=== PATIENT | male | born 1985 | race Two or more races ===

== ENCOUNTER 2017-11-16 10:17 | Emergency (ER) | payer SELFPAY ==
[~2017-11-16] VITALS: Ht 188 cm; Wt 79.4 kg
[2017-11-16 10:44] LABS: BASO % 0 % (0-3); EOS % 0 % (0-3); HEMATOCRIT 41.2 % (39.0-53.0); HEMOGLOBIN 14.6 g/dL (13.0-17.5); LYMPH # 0.2 x10^3/uL (1.0-4.8); LYMPH % 3 % (24-48); MEAN CORPUSCULAR HEMOGLOBIN 34 pg (25-35); MEAN CORPUSCULAR HGB CONC 36 g/dL (31-37); MEAN CORPUSCULAR VOLUME 95 fL (79-100); MONO # 1.1 x10^3/uL (0.0-1.1); MONO % 15 % (0-9); NEUT % 82 % (31-73); PLATELET COUNT 61 x10^3/uL (140-400); RED BLOOD COUNT 4.36 x10^6/uL (4.30-5.70); RED CELL DISTRIBUTION WIDTH 14.8 % (11.5-14.5); WHITE BLOOD COUNT 7.3 x10^3/uL (4.0-11.0)
[2017-11-16] MEDS ORDERED: IV NORMAL SALINE 1000ML BAG 1,000 ML IV ONE ×3 (10:45→11:45)
[2017-11-16] MEDS ORDERED: DIPHTH,PERTUSS(ACELL),TET TOX 0.5 ML DISP.SYRIN. VAX IM ONE (10:45)
[2017-11-16 10:53] LABS: CALCIUM 9.7 mg/dL (8.5-10.1); CREATININE 1.4 mg/dL (0.7-1.3); GFR 59.5; POTASSIUM 3.4 mmol/L (3.5-5.1)
[2017-11-16 10:57] LABS: BILIRUBIN,URINE SMALL (NEG); CLARITY,URINE CLEAR; NITRITE,URINE POSITIVE (NEG); PH,URINE 6.5; PROTEIN,URINE >=300 mg/dL (NEG-TRACE)
[2017-11-16 10:59] LABS: ALBUMIN 4.7 g/dL (3.4-5.0); ALBUMIN/GLOBULIN RATIO 1.2 (1.0-1.7); TOTAL BILIRUBIN 1.9 mg/dL (0.2-1.0); TOTAL PROTEIN 8.5 g/dL (6.4-8.2)
[2017-11-16 11:09] LABS: BARBITURATES NEG (NEG); BENZODIAZEPINES NEG (NEG); CANNABINOIDS POS (NEG); COCAINE NEG (NEG); METHADONE NEG (NEG); OPIATES NEG (NEG); PHENCYCLIDINE NEG (NEG)
[2017-11-16 11:10] LABS: AMPHETAMINE/METHAMPHETAMINE POS (NEG)
--- NOTE | 2017-11-16 11:16 | RAD ---
EXAM: Head CT without contrast. HISTORY: Seizure. TECHNIQUE: Computed tomographic images of the head were obtained without contrast. *One or more of the following individualized dose reduction techniques were utilized for this examination: 1. Automated exposure control. 2. Adjustment of the mA and/or kV according to patient size. 3. Use of iterative reconstruction technique. COMPARISON: None. FINDINGS: There is no acute or subacute extra-axial or intraparenchymal hemorrhage. There is no mass effect or midline shift. There is no hydrocephalus. The terrazas-white matter differentiation pattern is intact. There is evidence of reconstruction of a left orbital fracture. The mastoid air cells are clear. The visualized paranasal sinuses are clear. No suspicious calvarial lesion is seen. IMPRESSION: No acute intracranial findings. Electronically signed by: Kathie Au MD (11/16/2017 11:13 AM) [facility]
[2017-11-16 11:20] LABS: BACTERIA,URINE FEW /HPF (0-FEW); HYALINE CASTS, URINE OCCASIONAL /HPF; SQUAMOUS EPITHELIAL CELL,UR OCC /LPF; WBC,URINE OCC /HPF (0-4)
[2017-11-16 11:21] LABS: COLOR,URINE AMBER
[2017-11-16 11:29] LABS: ACETAMIN < 2 mcg/ml (10-30); SALIC < 2.8 mg/dL (2.8-20.0)
[2017-11-16 12:17] LABS: % BANDS 11 % (0-9); % LYMPHS 3 % (24-48); % MONOS 11 % (0-10); % SEGS 75 % (35-66)
[2017-11-16 12:19] LABS: PLT ESTIMATE DECREASED (ADEQUATE)
[2017-11-16 13:20] VITALS: BP 157/78
--- NOTE | 2017-11-16 14:05 | PHYS DOC ---
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 Apparently this was a witnessed seizure he was sitting on the stairs and then sort of passed out and apparently had some tonic-clonic activity that was out for approximately 10 minutes he had his head on the side of the stairs. His girlfriend did witness this and then ultimately actually she went to the hospital for a anxiety attack related to this problems she did tell the medics that they were drinking alcohol heavily last night. Patient tells me that he has been drinking alcohol but he says was a couple days back and he is trying to cut down he says he does not drink every day. He says that he was "eating Adderall" when I asked him about his drug screen. He says he was not actually using methamphetamine. He currently feels much better he just wants something to eat and drink he denies chest pain shortness of breath or abdominal pain he has mild headache at the site of the head injury he says Review of Systems Review of Systems Constitutional: Denies fever or chills [] Eyes: Denies change in visual acuity, redness, or eye pain [] GI: Denies abdominal pain, nausea, vomiting, bloody stools or diarrhea [] Integument: Denies rash or skin lesions [] Neurologic: Denies headache, focal weakness or sensory changes [] All other systems were reviewed and found to be within normal limits, except as documented in this note. Current Medications Current Medications Current Medications Medications (Trade) Dose Ordered Sig/Manny Start Time Stop Time Status Last Admin Dose Admin Diphtheria/ Tetanus/Acell Pertussis (Boostrix) 0.5 ml ONCE ONCE 11/16/17 10:45 11/16/17 10:46 DC 11/16/17 11:39 0.5 ML Lorazepam (Ativan) 2 mg 1X ONCE 11/16/17 12:30 11/16/17 12:31 DC 11/16/17 12:38 2 MG Sodium Chloride 1,000 ml @ 1,000 mls/hr 1X ONCE 11/16/17 11:45 11/16/17 12:44 DC 8/26/18 12:26 1,000 MLS/HR Allergies Allergies Allergies Coded Allergies Type Severity Reaction Last Updated Verified No Known Drug Allergies 01/10/14 No Physical Exam Physical Exam Constitutional: Well developed, well nourished, no acute distress, non-toxic appearance. [] HENT: Normocephalic, atraumatic, bilateral external ears normal, oropharynx moist, no oral exudates, nose normal. [] Eyes: PERRLA, EOMI, conjunctiva normal, no discharge. [] Neck: Normal range of motion, no tenderness, supple, no stridor. [] Cardiovascular:Heart rate regular rhythm, no murmur [] Lungs & Thorax: Bilateral breath sounds clear to auscultation [] Abdomen: Bowel sounds normal, soft, no tenderness, no masses, no pulsatile masses. [] Skin: Warm, dry, no erythema, no rash. [] Back: No tenderness, no CVA tenderness. [] Extremities: No tenderness, no cyanosis, no clubbing, ROM intact, no edema. [] Neurologic: Alert and oriented X 3, normal motor function, normal sensory function, no focal deficits noted. [] Psychologic: Affect normal, judgement normal, mood normal. [] Current Patient Data Vital Signs Vital Signs Date Time Temp Pulse Resp B/P (MAP) Pulse Ox O2 Delivery O2 Flow Rate FiO2 11/16/17 10:20 100.3 119 22 172/83 (112) 98 Room Air 100.3 Lab Values Laboratory Tests Test 11/16/17 10:30 11/16/17 10:40 White Blood Count 7.3 x10^3/uL (4.0-11.0) Red Blood Count 4.36 x10^6/uL (4.30-5.70) Hemoglobin 14.6 g/dL (13.0-17.5) Hematocrit 41.2 % (39.0-53.0) Mean Corpuscular Volume 95 fL (79-100) Mean Corpuscular Hemoglobin 34 pg (25-35) Mean Corpuscular Hemoglobin Concent 36 g/dL (31-37) Red Cell Distribution Width 14.8 % (11.5-14.5) H Platelet Count 61 x10^3/uL (140-400) L Neutrophils (%) (Auto) 82 % (31-73) H Lymphocytes (%) (Auto) 3 % (24-48) L Monocytes (%) (Auto) 15 % (0-9) H Eosinophils (%) (Auto) 0 % (0-3) Basophils (%) (Auto) 0 % (0-3) Neutrophils # (Auto) 6.0 x10^3uL (1.8-7.7) Lymphocytes # (Auto) 0.2 x10^3/uL (1.0-4.8) L Monocytes # (Auto) 1.1 x10^3/uL (0.0-1.1) Eosinophils # (Auto) 0.0 x10^3/uL (0.0-0.7) Basophils # (Auto) 0.0 x10^3/uL (0.0-0.2) Segmented Neutrophils % 75 % (35-66) H Band Neutrophils % 11 % (0-9) H Lymphocytes % 3 % (24-48) L Monocytes % 11 % (0-10) H Platelet Estimate Decreased (ADEQUATE) Prothrombin Time 13.0 SEC (11.7-14.0) Prothrombin Time INR 1.0 (0.8-1.1) Sodium Level 126 mmol/L (136-145) L Potassium Level 3.4 mmol/L (3.5-5.1) L Chloride Level 86 mmol/L (98-107) L Carbon Dioxide Level 32 mmol/L (21-32) Anion Gap 8 (6-14) Blood Urea Nitrogen 18 mg/dL (8-26) Creatinine 1.4 mg/dL (0.7-1.3) H Estimated GFR (Cockcroft-Gault) 59.5 BUN/Creatinine Ratio 13 (6-20) Glucose Level 137 mg/dL (70-99) H Glucose (Fingerstick) 149 mg/dL (70-99) H Calcium Level 9.7 mg/dL (8.5-10.1) Total Bilirubin 1.9 mg/dL (0.2-1.0) H Aspartate Amino Transferase (AST) 195 U/L (15-37) H Alanine Aminotransferase (ALT) 151 U/L (16-63) H Alkaline Phosphatase 90 U/L (46-116) Creatine Kinase 2736 U/L (39-308) H Total Protein 8.5 g/dL (6.4-8.2) H Albumin 4.7 g/dL (3.4-5.0) Albumin/Globulin Ratio 1.2 (1.0-1.7) Salicylates Level < 2.8 mg/dL (2.8-20.0) L Salicylate Last Dose Date Unknown Salicylate Last Dose Time Unknown Acetaminophen Level < 2 mcg/ml (10-30) L Acetaminophen Last Dose Date Unknown Acetaminophen Last Dose Time Unknown Ethyl Alcohol Level < 10 mg/dL (0-10) Urine Collection Type Unknown Urine Color Elisabeth Urine Clarity Clear Urine pH 6.5 Urine Specific [place] >=1.030 Urine Protein >=300 mg/dL (NEG-TRACE) Urine Glucose (UA) Negative mg/dL (NEG) Urine Ketones (Stick) mg/dL (NEG) Urine Blood Moderate (NEG) Urine Nitrite Positive (NEG) Urine Bilirubin Small (NEG) Urine Urobilinogen Dipstick mg/dL (0.2 mg/dL) Urine Leukocyte Esterase Small (NEG) Urine RBC 1-2 /HPF (0-2) Urine WBC Occ /HPF (0-4) Urine Squamous Epithelial Cells Occ /LPF Urine Bacteria Few /HPF (0-FEW) Urine Hyaline Casts Occasional /HPF Urine Mucus Mod /LPF Urine Opiates Screen Neg (NEG) Urine Methadone Screen Neg (NEG) Urine Barbiturates Neg (NEG) Urine Phencyclidine Screen Neg (NEG) Urine Amphetamine/Methamphetamine Pos (NEG) Urine Benzodiazepines Screen Neg (NEG) Urine Cocaine Screen Neg (NEG) Urine Cannabinoids Screen Pos (NEG) Urine Ethyl Alcohol Neg (NEG) Laboratory Tests 11/16/17 10:30 Laboratory Tests 11/16/17 10:30 EKG EKG [] Interpretation Time: EKG shows a normal sinus rhythm there were no obvious ischemic changes noted the patient was not tachycardic on this EKG. Radiology/Procedures Radiology/Procedures [] Impressions: HISTORY: Seizure. TECHNIQUE: Computed tomographic images of the head were obtained without contrast. *One or more of the following individualized dose reduction techniques were utilized for this examination: 1. Automated exposure control. 2. Adjustment of the mA and/or kV according to patient size. 3. Use of iterative reconstruction technique. COMPARISON: None. FINDINGS: There is no acute or subacute extra-axial or intraparenchymal hemorrhage. There is no mass effect or midline shift. There is no hydrocephalus. The terrazas-white matter differentiation pattern is intact. There is evidence of reconstruction of a left orbital fracture. The mastoid air cells are clear. The visualized paranasal sinuses are clear. No suspicious calvarial lesion is seen. IMPRESSION: No acute intracranial findings. Electronically signed by: Kathie Au MD (11/16/2017 11:13 AM) [facility] Course & Med Decision Making Course & Med Decision Making Pertinent Labs and Imaging studies reviewed. (See chart for details) 32-year-old male presenting biba with seizure. Patient had CT imaging which is negative he had multiple lab tests that were done showing evidence of probable rhabdomyolysis urinalysis showed moderate blood creatinine was mildly elevated. Patient does have a temperature of 100.3 orally he did have episodes of tachycardia in the emergency room up to 1:30 to 140 at one point however then after receiving a total of 6 m g of Ativan his heart rate did seem to improve at rest his heart rate was in the 80s at rest after that. At 1:40 PM or so I was notified the patient and pulled out his IV sedating must go. He says that he feels better after having a meal and taking a nap. I talked to the patient about the risks and benefits of leaving the emergency department AMA I did talk with him that I want him to be admitted to the hospital for treatment of muscle breakdown which could lead to kidney failure. He says he is aware of that and that "I just need to sleep all be better tomorrow". I did tell him that I thought IV fluids and monitoring were much better and that he couldn't ultimately have organ failure or and he said he understands but he still must go he is feeling better and he plans to stay hydrated and rest. I did certified addiction counselor him that he is not allowed to drive until he is seen by a neurologist due to seizure activity. Patient was able to stay gait he actually reached out and touched his toes while he was waiting for his discharge paperwork he was steady when he stood back up. It appear that he was stretching. Patient thought he was in [place] but then once we put him he was in [place] he was able to relate that again he knows it's October 2017 I feel that he is fairly alert he may be suffering from alcohol withdrawal or Adderall intoxication or both I strongly encourage him to stay in the hospital but I could not convince him to do so. He was encouraged to come back at any time should he decide to be admitted or if symptoms should worsen in any way. Dragon Disclaimer Dragon Disclaimer This electronic medical record was generated, in whole or in part, using a voice recognition dictation system. Departure Departure Impression: Primary Impression: Seizure Disposition: 07 AGAINST MEDICAL ADVICE Condition: STABLE CLAIRE ONEILL MD Nov 16, 2017 14:05
--- NOTE | 2017-11-16 18:50 | EKG ---
[facility] [address] [place] [address] Test Date: 2017-11-16 Test Time: 12:48:51 Pat Name: ERENSTO MIRELES Department: Room: Gender: M Financial Recording Clerk: : [id number] Requested By: CLAIRE ONEILL Order Number: [id number] Reading MD: Jigar Wahl MD Measurements Intervals [place] Rate: 98 P: 8 PA: 152 QRS: 70 QRSD: 88 T: 36 QT: 356 QTc: 456 Interpretive Statements SR Electronically Signed On 11-17-2017 10:50:07 CDT by Jigar Wahl MD
== END 2017-11-16 13:43 | disposition left against medical advice (07) ==
LOC: ER 10:17
DX: R56.9 Unspecified convulsions (principal)
CPT/HCPCS: 36415; 70450; 80053; 80307; 80329; 81001; 82550; 82962; 85007; 85025; 85610; 87086; 90471; 90715; 93005; 96374; 96376; 99285; G0480; G6039; J2060; J7030; G0479

== ENCOUNTER 2017-12-02 15:35 | Emergency (ER) | payer SELFPAY ==
[~2017-12-02] VITALS: Ht 188 cm; Wt 79.4 kg
[2017-12-02 16:55] VITALS: BP 147/96
== END 2017-12-02 17:14 | disposition left against medical advice (07) ==
LOC: ER 15:35
DX: R00.2 Palpitations (principal); R11.10 Vomiting, unspecified; Z53.21 Procedure and treatment not carried out due to patient leaving prior to being seen by health care provider

== ENCOUNTER 2018-10-19 19:18 | Emergency (ER) | payer SELFPAY ==
[~2018-10-19] VITALS: Ht 188 cm; Wt 79.4 kg
[2018-10-19 20:09] VITALS: BP 139/89
[2018-10-19] MEDS ORDERED: HYDR-2761 PO (21:08)
--- NOTE | 2018-10-19 21:08 | PHYS DOC ---
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 Patient states he was walking when he accidentally stepped into a cellar and fell down catching himself with his arms. He currently rates his pain a 6 out of 10 on the pain scale, states that he has been self-medicating with vodka to help with the pain. He states that the pain increases with deep breath and movement. ROS Patient denies any fever, neck pain, back pain, loss of consciousness, nausea, vomiting, diarrhea, abdominal pain, numbness, tingling, or weakness. He denies any shortness of breath or hematemesis. He reports a normal cough. All other ROS is neg unless otherwise noted in HPI. (RAYA GARNER APRN) Review of Systems Review of Systems See Above (RAYA GARNER APRN) Allergies Allergies Allergies Coded Allergies Type Severity Reaction Last Updated Verified No Known Drug Allergies 12/02/17 No (LULI CALI DO) Physical Exam Physical Exam See Above Constitutional: Well developed, well nourished, no acute distress, non-toxic appearance, strong or of EtOH HENT: Normocephalic, atraumatic, bilateral external ears normal, oropharynx m oist, no oral exudates, nose normal. [] Eyes: PERRLA, conjunctiva normal, no discharge. [] Neck: Normal range of motion, no tenderness, supple, no stridor. [] Cardiovascular:Heart rate regular rhythm, no murmur [] Lungs & Thorax: Bilateral breath sounds clear to auscultation; right lateral lower rib tenderness to palpation, left lateral rib tenderness to palpation, no crepitus, no subcutaneous emphysema [] Skin: Warm, dry, no erythema, no rash. [] Extremities: No tenderness, no cyanosis, no clubbing, ROM intact, no edema. [] Neurologic: Alert and oriented X 3, no focal deficits noted. [] Psychologic: Affect normal, judgement normal, mood normal. [] (RAYA GARNER APRN) Current Patient Data Vital Signs Vital Signs Date Time Temp Pulse Resp B/P (MAP) Pulse Ox O2 Delivery O2 Flow Rate FiO2 10/19/18 20:09 98.1 110 18 139/89 (106) 98 Room Air 98.1 (LULI CALI DO) EKG EKG [] (RAYA GARNER APRN) Radiology/Procedures Radiology/Procedures Mildly displaced right lower rib fracture read by Dr. Cali, no pneumothorax.[] (RAYA GARNER APRN) Radiology/Procedures PROCEDURE: RIBS BILAT & PA CXR 4+V Exam: RIBS bilateral with AP chest INDICATION: Fall 3 days ago TECHNIQUE: Frontal view of the chest with oblique views of the lytic ribs bilaterally Comparisons: None FINDINGS: The cardiomediastinal silhouette and pulmonary vessels are within normal limits. The lung and pleural spaces are clear. Mildly displaced fracture of the lateral right 10th rib. IMPRESSION: 1. Mildly displaced fracture of the right lateral 10th rib. 2. No acute pulmonary process. Electronically signed by: Holly Kim MD (10/19/2018 11:32 PM) [facility] (LULI CALI DO) Course & Med Decision Making Course & Med Decision Making Pertinent Labs and Imaging studies reviewed. (See chart for details) dx: Right lower mildly displaced rib fracture Patient was given an incentive spirometer and instructed to use the incentive spirometer every 2 hours while awake. Prescription written for hydrocodone 5/ 3/25 milligram tablets patient may take 1/2-1 tablet every 6 hours as needed for pain. Follow-up with primary care doctor if symptoms persist, return to the ER if symptoms worsen. Patient verbalized an understanding of home care, medications, follow-up, and return to ED instructions and was in agreement with the plan of care. [] (RAYA GARNER APRN) Dragon Disclaimer Dragon Disclaimer This electronic medical record was generated, in whole or in part, using a voice recognition dictation system. (RAYA GARNER APRN) Departure Departure Impression: Primary Impression: Right rib fracture Disposition: 01 HOME, SELF-CARE Condition: STABLE Referrals: NO PCP (PCP) Patient Instructions: Rib Fracture, [id number] Additional Instructions: Fill prescription and use as directed. Apply ice packs to the sore areas as needed for comfort. Use the incentive spirometer every 2 hours while awake as instructed. Follow-up with your primary care doctor if symptoms persist, return to the ER if symptoms worsen. Scripts Hydrocodone Bit/Acetaminophen (HYDROCODONE-APAP 5-325 ) 1 Tab Tablet 0.5-1 TAB PO PRN Q6HRS PRN for PAIN for 2 Days, #8 TAB 0 Refills Prov: RAYA GARNER APRN 10/19/18 Attending Signature Attending Signature I have reviewed the PA/SHEARER SCREEN MEASURER AND TRIMMER's note and plan of care. I was available for consultation as needed during the patient's visit in the emergency department. I agree with the clinical impression, plan, and disposition. (LULI CALI DO) Problem Qualifiers Primary Impression: Right rib fracture Encounter type: initial encounter Rib fracture type: single rib Fracture type: closed Qualified Codes: S22.31XA - Fracture of one rib, right side, initial encounter for closed fracture RAYA GARNER APRN Oct 19, 2018 21:08 LULI CALI DO Oct 20, 2018 03:53
--- NOTE | 2018-10-19 23:35 | RAD ---
Exam: RIBS bilateral with AP chest INDICATION: Fall 3 days ago TECHNIQUE: Frontal view of the chest with oblique views of the lytic ribs bilaterally Comparisons: None FINDINGS: The cardiomediastinal silhouette and pulmonary vessels are within normal limits. The lung and pleural spaces are clear. Mildly displaced fracture of the lateral right 10th rib. IMPRESSION: 1. Mildly displaced fracture of the right lateral 10th rib. 2. No acute pulmonary process. Electronically signed by: Holly Kim MD (10/19/2018 11:32 PM) [facility]
== END 2018-10-19 21:19 | disposition home or self-care (01) ==
LOC: ER 19:18
DX: S22.31XA Fracture of one rib, right side, initial encounter for closed fracture (principal); W18.39XA Other fall on same level, initial encounter; Y93.01 Activity, walking, marching and hiking; Y92.89 Other specified places as the place of occurrence of the external cause; Y99.8 Other external cause status
CPT/HCPCS: 71111; 99284